=== PATIENT | male | born 1980 | race Two or more races ===

== ENCOUNTER 2023-07-28 12:08 | Outpatient (AMB) | payer OTHER, SELFPAY ==
--- NOTE | 2023-07-28 12:14 | MHC.OFFVIS ---
Vital Signs 07/28/23 12:39 Height 5 ft 6 in Weight 242 lb 8.136 oz BMI 39.1 BP 118/64 Blood Pressure Location Lt brachial Position Sitting Pulse 87 Intake Visit Reasons: rectal bleeding Intake Note: Patient new consult for rectal bleeding Patient cc: Left upper and down abdominal pain and rectal bleeding. Denies any other GI issues. Demurrage Agent Required: No Demurrage Agent Name: Elmo Vidal Accompanied by: Self / Same As Patient Allergies No Known Allergies Allergy (Verified 07/28/23 12:34) HPI HPI rectal bleeding: Details: 43-year-old male with no significant past medical history is here today for initial consultation. Was sent to us by his PCP for evaluation of his current symptoms. Patient reports left lower and right lower quadrant pain rectal pain and bleeding. Patient reports constipation. No bowel movements for few days sometimes. Patient denies any melena, no family history of CRC. Occasional postprandial abdominal bloating. Denies any dyspepsia, dysphagia or odynophagia. Patient denies any nausea or vomiting. Patient admits to straining when having a bowel movement. Reports having abdominal pain before having bowel movement and lump in the left lower quadrant after BM. [facility] Social History (Updated 07/28/23 @ 12:35 by Tabitha Cruz) Household Members: Family Alcohol intake: never Patient Tobacco Use Status: Never used Tobacco Review of Systems Const Denies weight gain and Denies weight loss ENT Reports no additional complaints, Denies dysphagia and Denies odynophagia Card Reports no additional complaints Resp Reports no additional complaints GI Reports abdominal pain (LUQ,LLQ), Denies belching, Denies melena, Denies bloating, Reports hematochezia, Reports constipation, Denies dysphagia, Denies excessive flatus, Denies dyspepsia, Denies heartburn, Denies diarrhea, Denies loose stools, Denies nausea, Denies odynophagia and Denies vomiting Reports no additional complaints Musc Reports no additional complaints Neuro Reports no additional complaints Psych Reports no additional complaints Endo Reports no additional complaints Physical Exam Vital Signs: Last Vital Signs Pulse 87 07/28/23 12:39 BP 118/64 07/28/23 12:39 BMI result Body Mass Index 39.1 Const General: healthy appearing and no acute distress Nutritional Appearance: obese Orientation/consciousness: patient oriented x3 Resp Effort & Inspection: normal respiratory effort, able to speak in complete sentences, no tracheal deviation and symmetric chest movement Auscultation: clear to auscultation bilaterally Cardio Rate: regular rate GI Inspection: Yes normal to inspection, No distended and Yes obesity Palpation (GI): Soft to palpation, not firm, nontender and No hepatosplenomegaly present Auscultation: normal bowel sounds General: Yes no CVA tenderness Back/Spine/Pelvis Back: no CVA tenderness Skin General skin exam: elasticity normal, turgor normal and dry skin Neuro General: patient oriented x3 Psych Appearance: grossly normal Mental Status: mental status grossly normal Assessment & Plan Assessment & Plan (1) LLQ abdominal pain: Code(s): R10.32 - Left lower quadrant pain (2) Rectal bleed: Code(s): K62.5 - Hemorrhage of anus and rectum (3) Constipation: Code(s): K59.00 - Constipation, unspecified Qualifiers: Constipation type: slow transit constipation Qualified Code(s): K59.01 - Slow transit constipation Plan Patient will be sent for CT scan to rule out diverticulitis, unlikely colitis as patient is constipated no diarrhea. We will book colonoscopy in the meantime will evaluate patient. He will be started on Dulcolax and will take MiraLax in the morning. Patient was encouraged to increase fluid intake and activity to promote better bowel motility. Patient does admit his rectum itchy after bowel movement, will send script for Proctosol. Sitz baths recommended with Epsom salts as well. I will see patient in 2 months, sooner on as needed basis. He is agreeable to this plan and verbalizes understanding of instructions. He was given the opportunity to ask questions and all questions answered. Thank you for allowing me to participate in his care Orders: Orders CT abdomen pelvis w IV con 07/28/23 R10.9 - Unspecified abdominal pain, R10.32 - Left lower quadrant pain Blood Urea Nitrogen 07/28/23 R10.11 - Right upper quadrant pain Creatinine 07/28/23 R10.11 - Right upper quadrant pain Medications: New bisacodyl (Dulcolax (bisacodyl)) 10 mg (2 x 5 mg) PO BEDTIME 180 tabs 4RF hydrocortisone 2.5% (Proctosol HC) 1 appl MT BID-QID PRN 30 grams 2RF hemorrhoids K64.9 - Unspecified hemorrhoids polyethylene glycol 3350 (Miralax) As directed by gastroenterology department at [facility] 238 grams PO ONCE 238 grams 0RF Z12.11 - Encounter for screening for malignant neoplasm of colon Coding Level of Care Code New Pt Level 4 (99525) Diagnoses LLQ abdominal pain R10.32 Rectal bleed K62.5 Slow transit constipation K59.01 Constipation type: slow transit constipation Time Spent (min) 45 Comment 35 minutes spent with patient and additional 10 minutes spent reviewing his records
[2023-07-28 12:39] VITALS: BP 118/64; PULSE 87; BMI 39.1
== END 2023-07-28 12:56 | disposition home or self-care (01) ==
PROVIDERS: PCP Internal Medicine; Visit Provider Physician Assistant
DX: R10.32 Left lower quadrant pain (principal); K62.5 Hemorrhage of anus and rectum; K59.01 Slow transit constipation
CPT/HCPCS: 99204

== ENCOUNTER → 2023-07-28 12:08 | Outpatient (BNVA) | payer OTHER, SELFPAY | PROVIDERS: PCP Internal Medicine; Visit Provider Physician Assistant | DX: R10.32 Left lower quadrant pain (principal); R10.31 Right lower quadrant pain; K62.5 Hemorrhage of anus and rectum; K59.01 Slow transit constipation | CPT/HCPCS: 99202 ==

== ENCOUNTER 2023-09-15 09:02 | Outpatient (AMB) | payer OTHER, SELFPAY ==
--- NOTE | 2023-09-15 09:08 | A.OFFVIS_ITS ---
Vital Signs 09/15/23 09:11 Height 5 ft 6 in Weight 231 lb 7.766 oz BMI 37.4 BP 135/75 Blood Pressure Location Lt brachial Position Sitting Pulse 79 Intake Visit Reasons: 2 month follow up Intake Note: Prema presents in the office as a 2 month follow up. CC: He states that he has pains in his rectum. He wants to have a colonoscopy because he had a scan that showed nothing. 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 We will book colonoscopy in the meantime will evaluate patient. He will be started on Dulcolax and will take MiraLax in the morning. Patient was encouraged to increase fluid intake and activity to promote better bowel motility. Patient does admit his rectum itchy after bowel movement, will send script for Proctosol. Sitz baths recommended with Epsom salts as well. I will see patient in 2 months, sooner on as needed basis. He is agreeable to this plan and verbalizes understanding of instructions. He was given the opportunity to ask questions and all questions answered. ? Thank you for allowing me to participate in his care Orders Orders CT abdomen pelvis w IV con 07/28/23 R10.9, R10.32 Blood Urea Nitrogen 07/28/23 R10.11 Creatinine 07/28/23 R10.11 Medications New bisacodyl (Dulcolax (bisacodyl)) 10 mg (2 x 5 mg) PO BEDTIME 180 tabs 4RF hydrocortisone 2.5% (Proctosol HC) 1 appl MT BID-QID PRN 30 grams 2RF hemorrhoids K64.9 polyethylene glycol 3350 (Miralax) As directed by gastroenterology department at [facility] 238 grams PO ONCE 238 grams 0RF Z12.11 TODAY'S VISIT: Patient is here today for follow-up and to discuss going for colonoscopy. 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 Patient continues to have abdominal pain, occasional blood in his stool. Reports that he is taking Dulcolax in his moving his bowels better. Patient is using Proctosol on as needed basis. CT scan order last visit and scheduled for October. Patient denies any nausea or vomiting. Patient denies any dyspepsia, dysphagia or odynophagia. Patient denies melena, ribbon like stools or weight loss. No issues with anesthesia in the past. No history of sleep apnea. Not on any anticoagulation medication. Patient denies any family history of CRC. [facility] Social History Household Members: Family Alcohol intake: never Patient Tobacco Use Status: Never used Tobacco Review of Systems Const Denies weight gain and Denies weight loss ENT Reports no additional complaints, Denies dysphagia and Denies odynophagia Card Reports no additional complaints Resp Reports no additional complaints GI Reports abdominal pain (LUQ,LLQ), Denies belching, Denies melena, Denies bloating, Reports hematochezia, Reports constipation, Denies dysphagia, Denies excessive flatus, Denies dyspepsia, Denies heartburn, Denies diarrhea, Denies loose stools, Denies nausea, Denies odynophagia and Denies vomiting Reports no additional complaints Musc Reports no additional complaints Neuro Reports no additional complaints Psych Reports no additional complaints Endo Reports no additional complaints Physical Exam Vital Signs: Last Vital Signs Pulse 79 09/15/23 09:11 BP 135/75 09/15/23 09:11 BMI result Body Mass Index 37.4 Const General: healthy appearing and no acute distress Nutritional Appearance: obese Orientation/consciousness: patient oriented x3 Resp Effort & Inspection: normal respiratory effort, able to speak in complete sentences, no tracheal deviation and symmetric chest movement Auscultation: clear to auscultation bilaterally Cardio Rate: regular rate GI Inspection: Yes normal to inspection, No distended and Yes obesity Palpation (GI): Soft to palpation, not firm, nontender and No hepatosplenomegaly present Auscultation: normal bowel sounds General: Yes no CVA tenderness Back/Spine/Pelvis Back: no CVA tenderness Skin General skin exam: elasticity normal, turgor normal and dry skin Neuro General: patient oriented x3 Psych Appearance: grossly normal Mental Status: mental status grossly normal Assessment & Plan Assessment & Plan (1) LLQ abdominal pain: Code(s): R10.32 - Left lower quadrant pain (2) Rectal bleed: Code(s): K62.5 - Hemorrhage of anus and rectum (3) Constipation: Code(s): K59.00 - Constipation, unspecified Qualifiers: Constipation type: slow transit constipation Qualified Code(s): K59.01 - Slow transit constipation Plan Patient continues to have left lower quadrant pain. Takes Dulcolax on as needed basis. Proctosol on as needed basis. CT scan scheduled for October. Patient was encouraged to increase fluid intake and activity to promote better bowel motility. Patient will be scheduled for colonoscopy as he continues to have rectal bleeding. Patient reports usually happens after he has a bowel movement. Patient denies any rectal pain. Denies any family history of CRC. No history of sleep apnea. Not on any anticoagulation medication. No issues with anesthesia in the past. What to expect before during and after procedure discussed with patient. Discussed with patient the importance of good bowel prep and clear liquid diet day before procedure. I will see patient after the procedure, sooner on as needed basis. She is agreeable to this plan and verbalizes understanding of instructions. He was given the opportunity to ask questions and all questions answered. Medications: Refilled polyethylene glycol 3350 (Miralax) As directed by gastroenterology department at [facility] 238 grams PO ONCE 238 grams 0RF Z12.11 - Encounter for screening for malignant neoplasm of colon Coding Level of Care Code Est Pt Level 3 (00772) Diagnoses LLQ abdominal pain R10.32 Rectal bleed K62.5 Slow transit constipation K59.01 Constipation type: slow transit constipation Time Spent (min) 25 Comment 15 minutes spent with patient and additional 10 minutes spent reviewing his records
[2023-09-15 09:11] VITALS: BP 135/75; PULSE 79; BMI 37.4
== END 2023-09-15 09:46 | disposition home or self-care (01) ==
PROVIDERS: PCP Internal Medicine; Visit Provider Nurse Practitioner Family
DX: R10.32 Left lower quadrant pain (principal); K62.5 Hemorrhage of anus and rectum; K59.01 Slow transit constipation
CPT/HCPCS: 99213

== ENCOUNTER → 2023-09-15 09:02 | Outpatient (BNVA) | payer OTHER, SELFPAY | PROVIDERS: PCP Internal Medicine; Visit Provider Nurse Practitioner Family | DX: R10.32 Left lower quadrant pain (principal); K62.5 Hemorrhage of anus and rectum; K59.01 Slow transit constipation | CPT/HCPCS: 99212 ==

== ENCOUNTER 2024-02-08 09:28 | Day surgery (SDC) | payer OTHER, SELFPAY ==
[2024-01-24 14:21] VITALS: BMI 37.3
--- NOTE | 2024-01-25 09:58 | P.CONAN_ITS ---
Documented by User: Jo-Ann Bowen NP 01/25/24 09:59 HPI - Anesthesia Eval Consult details Narrative: 43yo M for Colonoscopy [facility] Past Medical History Medical History Diabetes Surgical History Surgical History Surgical history unknown Social History Social History Household Members: Family Alcohol intake: never Patient Tobacco Use Status: Never used Tobacco Have you been hit, kicked, punched, or otherwise hurt by someone within the past year? If so, by whom?: No Are you DNR?: No Advance Directives: No Advance Directives Information Provided: Yes Meds Allergies Allergy/AdvReac Type Severity Reaction Status Date / Time No Known Allergies Allergy Verified 09/15/23 09:11 Home Medications ?Medication ?Instructions ?Recorded ?Confirmed ?Last Taken ?Type metformin 500 mg tablet,extended 500 mg PO BID 09/15/23 01/24/24 02/06/24 History release 24 hr Exam Height,Weight and Vital Signs: Height 5 ft 6 in Weight 104.78 kg Assessment and Plan Assessment Anesthesia Assessment: Chart Reviewed Documented by User: Naima Fleming MD 02/08/24 11:19 [facility] Past Medical History Medical History Diabetes Family History Family history of problems with anesthesia: No Surgical History Surgical History Surgical history unknown History of Problems with Anesthesia: No Social History Social History Household Members: Family Alcohol intake: never Patient Tobacco Use Status: Never used Tobacco Have you been hit, kicked, punched, or otherwise hurt by someone within the past year? If so, by whom?: No Are you DNR?: No Advance Directives: No Advance Directives Information Provided: Yes Meds Allergies Allergy/AdvReac Type Severity Reaction Status Date / Time No Known Allergies Allergy Verified 09/15/23 09:11 Home Medications ?Medication ?Instructions ?Recorded ?Confirmed ?Last Taken ?Type metformin 500 mg tablet,extended 500 mg PO BID 09/15/23 01/24/24 02/06/24 History release 24 hr Exam Airway Mallampati Class: III TM Dist: >3cm Neck ROM: Full Heart: rrr Lungs: cta Assessment and Plan Assessment Anesthesia Assessment: Anesthesia Plan Discussed Final Anesthetic Review Family History of Problems with Anesthesia: No History of Problems with Anesthesia: No NPO: Yes ASA Class: II Final Preanesthetic Review: No Changes in Pt Med Stat, Meds/Allgs Chart Reviewed, Consent Obtained/Reviewed and Anes Risks/Benef Reviewed Patient Risk: Intermediate Procedure Risk: Low Anesthetic Plan Anesthetic Plan: MAC: Disposition: Standard PACU
[2024-02-08 09:37] VITALS: BP 154/93; PULSE 78; RESP 18; TEMP 36.4; O2SAT 98; BMI 17.0
[2024-02-08] MEDS: Lactated Ringers 1,000 ML 100 ML IVCONT (10:00)
[2024-02-08 10:25] LABS: Glucose, Whole Blood 183 mg/dL (60-115)
--- NOTE | 2024-02-08 10:38 | MHC.SHP ---
Pre-Procedural Eval Section A - 24 Hr Update-Section A only Date of Service: 02/08/24 Section B - Complete if H&P > 30 days Chief Complaint: Hemorrhage of anus and rectum Relevant Family History (Specify if Yes): No Relevant Social History: None Present Medications: see Short Stay Collaborative assessment Medical History: Significant History (dm) History of Previous Operations: No relevant previous surgery Allergies: Allergies Allergy/AdvReac Type Severity Reaction Status Date / Time No Known Allergies Allergy Verified 09/15/23 09:11 Review of Systems Sugical H&P ROS: Negative: Constitution, Cardiovascular, Respiratory, Neurological, Psychiatric, Hem-Onc, Allergic/Immunologic, Gastrointestinal, Genitourinary, Musculoskeletal, Integumentary, Endocrine and Eyes/Ears/Nose/Throat Exam Surgical H&P Exam: Normal: HEENT, Normal: Heart, Normal: Lungs, Normal: Extremities, Normal: Abdomen, Normal: Skin and Normal: Neurological Plan Diagnosis/Plan: Unchanged I have reviewed the history and physical and performed a pertinent physical examination on my patient. No changes have occurred unless specified. Time Spent With Patient Time: Total time managing care of this patient today ____ minutes.
[2024-02-08 11:22] VITALS: BMI 36.0
--- NOTE | 2024-02-08 11:48 | HO.OPN-COLON ---
Colonoscopy Operative Note Operative Note Date of Service: 02/08/24 Narrative: Operative Information Procedure Description: Colonoscopy Indication: rectal bleeding, abn bowel habit Anesthesia: MAC COLONOSCOPY Instrument: Olympus variable stiffness adult scope 190L Colonoscopy Monitoring: Vital signs and clinical assessment, continuous EKG monitoring, Pulse oximetry, Carbon Dioxide monitoring and blood pressure monitoring were done throughout the procedure. Colon withdrawal time was 12 minutes. Procedure: The patient was placed in the left lateral decubitis position and pre-procedure medications were administered. After a digital rectal examination of the ano-rectum, the video colonoscope was inserted into the rectum and advanced through the colon to the cecum/TI. The colonoscope was slowly withdrawn in a retrograde panoramic fashion and the colon mucosa was carefully examined including a retroflexed view of the rectum. Findings and interventions are described below. Procedure Difficulty: easy Findings: Terminal Ileum-normal, bx taken Random colon bx taken Cecum:normal Ascending Colon: normal Transverse Colon -normal Descending Colon:normal Sigmoid Colon: normal Rectum: Retroflexion with small internal hemorrhoids seen, grade I Anorectum - normal Intervention: cold forceps bx Colon preparation: [place] Bowel Preparation Scale Right colon; 2 Transverse colon: 2 Left colon; 2 (0 = Unprepared colon segment with mucosa not seen due to solid stool that cannot be cleared. 1 = Portion of mucosa of the colon segment seen, but other areas of the colon segment not well seen due to staining, residual stool and/or opaque liquid. 2 = Minor amount of residual staining, small fragments of stool and/or opaque liquid, but mucosa of colon segment seen well. 3 = Entire mucosa of colon segment seen well with no residual staining, small fragments of stool or opaque liquid) Impression and Post Procedure Diagnosis: internal hemorrhoids Plan: High fiber diet leaflet Avoid straining at stool, epsom salts and sitz bath, anusol supps or cream Repeat Colonoscopy in 10 years or earlier if clinically indicated Above findings were reviewed with the patient and relevant handouts were provided if indicated.
[2024-02-08 11:58] VITALS: BP 137/90; PULSE 82; RESP 16; TEMP 36.1; O2SAT 98
[2024-02-08 12:13] VITALS: BP 135/82; PULSE 78; RESP 16; TEMP 36.1; O2SAT 98
== END 2024-02-08 13:19 | disposition home or self-care (01) ==
PROVIDERS: Visit Provider Internal Medicine Gastroenterology
PROC: 0DJD8ZZ Inspection of Lower Intestinal Tract, Via Natural or Artificial Opening Endoscopic (ICD-10-PCS; CPT 45378; principal; 2024-02-08 12:30)
DX: K62.5 Hemorrhage of anus and rectum (principal); K64.0 First degree hemorrhoids; K59.01 Slow transit constipation; E11.9 Type 2 diabetes mellitus without complications; Z79.84 Long term (current) use of oral hypoglycemic drugs
CPT/HCPCS: 45380; 82947; 88305; J2003; J2250; J2704

== ENCOUNTER → 2024-02-08 09:28 | Outpatient (BNV) | payer SELFPAY | PROVIDERS: Visit Provider Internal Medicine Gastroenterology | DX: K62.5 Hemorrhage of anus and rectum (principal); R19.4 Change in bowel habit; K64.0 First degree hemorrhoids | CPT/HCPCS: 45380 ==